=== PATIENT | male | born 1975 | race Two or more races ===

== ENCOUNTER 2016-10-13 19:15 | Emergency (ER) | payer SELFPAY ==
[~2016-10-13] VITALS: Ht 182.9 cm; Wt 102.2 kg
[~2016-10-13 19:15] MED LIST: IOHEXOL-300 100 ML BOTTLE ONE; SODIUM CHLORIDE 0.9% 10ML VIAL ONE
[2016-10-13] MEDS ORDERED: ONDANSETRON HCL 4MG/2ML VIAL IV ONE (20:45)
[2016-10-13 21:19] LABS: BASOPHILS % 0.6 % (0.0-2.0); HEMATOCRIT. 41.3 % (42.0-52.0); HEMOGLOBIN. 14.6 g/dL (14.0-18.0); LYMPHOCYTES % 7.5 % (20.0-50.0); MEAN CORPUSCULAR HEMOGLOBIN 30.5 pg (28.0-32.0); MEAN CORPUSCULAR VOLUME 86.7 fL (80.0-94.0); MEAN PLATELET VOLUME 7.2 fl (7.4-10.4); MONOCYTES % 10.3 % (2.0-8.0); NEUTROPHILS % 81.6 % (40.0-76.0); PLATELET 267 x1000/uL (130-400); RED BLOOD CELL COUNT 4.77 mill/uL (4.7-6.1); RED CELL DISTRIBUTION WIDTH 13.3 % (11.6-14.6)
[2016-10-13 21:24] LABS: CHLORIDE 101 mEq/L (98-107)
[2016-10-13 21:25] LABS: INR 1.1; PROTHROMBIN TIME 11.4 sec
[2016-10-13 21:33] LABS: CARBON DIOXIDE 24 mEq/L (21-32)
[2016-10-13 21:38] LABS: CLARITY URINE CLEAR (CLEAR); COLOR URINE YELLOW (YELLOW); GLUCOSE URINE NEGATIVE (NEGATIVE); KETONES URINE 3+ (NEGATIVE); LEUKOCYTE ESTERASE URINE 1+ (NEGATIVE); NITRITE URINE NEGATIVE (NEGATIVE); OCCULT BLOOD URINE 3+ (NEGATIVE); PROTEIN URINE NEGATIVE (NEGATIVE); SPECIFIC GRAVITY URINE 1.024 (1.005-1.030); UROBILINOGEN URINE 0.2 E.U./dL (0.2-1.0)
[2016-10-13] MEDS ORDERED: MORPHINE SULFATE 4 MG/ML CPJ (NOT FOR IM USE) IV NR (23:15)
[2016-10-13] MEDS ORDERED: ONDANSETRON HCL 4MG/2ML VIAL IV NR (23:15)
[2016-10-14 01:00] VITALS: BP 145/65
== END 2016-10-14 01:50 | disposition left against medical advice (07) ==
LOC: ER 21:47 → EDBEDREQ 10-14 00:26 → CANBEDREQ 10-14 01:05 → ER 10-14 01:50
DX: K56.7 Ileus, unspecified (principal); N20.0 Calculus of kidney; K56.60 Unspecified intestinal obstruction
CPT/HCPCS: 36415; 74177; 80053; 81001; 83690; 85025; 85610; 87086; 96374; 96375; 96376; 99285; A4216; J2270; J2405; Q9967; Z7610